=== PATIENT | male | born 1955 | race Asian ===

== ENCOUNTER 2018-10-05 06:18 | Inpatient (IN) | payer OTHER ==
[~2018-10-05] VITALS: Ht 162.6 cm; Wt 69.1 kg
[2018-10-05 10:52] LABS: CALCIUM 8.8 mg/dL (8.5-10.1); CARBON DIOXIDE 29.6 mmol/L (21-32); CHLORIDE SERUM 106 mmol/L (98-107); CREATININE SERUM 0.8 mg/dL (0.7-1.3); GFR1 > 60 mL/min; GLUCOSE SERUM 109 mg/dL (74-106); POTASSIUM SERUM 3.8 mmol/L (3.5-5.1); SODIUM SERUM 142 mmol/L (136-145)
[2018-10-05 10:58] LABS: ALBUMIN 3.6 g/dL (3.4-5.0); ALKALINE PHOSPHATASE 79 U/L (46-116); ALT/SGPT 24 U/L (16-63); AST/SGOT 18 U/L (15-37); BILIRUBIN TOTAL 0.4 mg/dL (0.20-1.00)
[2018-10-05 11:39] LABS: BASOPHIL % 0.4 % (0-2); PLATELET COUNT 194 x10^3mcL (130-400); RED CELL DISTRIBUTION WIDTH 12.8 % (11.5-14.5)
[2018-10-05 13:10] VITALS: BP 131/91
[2018-10-05 17:00] VITALS: BP 114/78
[2018-10-05 21:52] VITALS: BP 110/63
[2018-10-06 06:24] VITALS: BP 116/65
[2018-10-06 09:06] VITALS: BP 94/53
[2018-10-06 12:30] VITALS: BP 101/61
[2018-10-06 16:29] VITALS: BP 112/67
[2018-10-06 21:05] VITALS: BP 130/75
[2018-10-07 06:26] VITALS: BP 118/72
[2018-10-07 06:43] LABS: BASOPHIL % 0.2 % (0-2); PLATELET COUNT 166 x10^3mcL (130-400); RED CELL DISTRIBUTION WIDTH 12.9 % (11.5-14.5)
[2018-10-07 07:16] LABS: CALCIUM 7.9 mg/dL (8.5-10.1); CARBON DIOXIDE 28.2 mmol/L (21-32); CHLORIDE SERUM 102 mmol/L (98-107); CREATININE SERUM 0.8 mg/dL (0.7-1.3); GFR1 > 60 mL/min; GLUCOSE SERUM 106 mg/dL (74-106); POTASSIUM SERUM 3.4 mmol/L (3.5-5.1); SODIUM SERUM 138 mmol/L (136-145)
[2018-10-07 08:36] VITALS: BP 106/64
[2018-10-07 12:41] VITALS: BP 99/61
[2018-10-07 15:35] VITALS: BP 112/70
[2018-10-07 20:49] VITALS: BP 109/65
[2018-10-08 04:59] VITALS: BP 104/68
[2018-10-08 06:28] LABS: BASOPHIL % 0.5 % (0-2); PLATELET COUNT 172 x10^3mcL (130-400); RED CELL DISTRIBUTION WIDTH 12.9 % (11.5-14.5)
[2018-10-08 10:39] VITALS: BP 121/59
[2018-10-08 17:25] VITALS: BP 93/55
[2018-10-08 21:57] VITALS: BP 109/61
[2018-10-09 06:00] VITALS: BP 103/61
[2018-10-09 07:06] LABS: BASOPHIL % 0.3 % (0-2); PLATELET COUNT 161 x10^3mcL (130-400); RED CELL DISTRIBUTION WIDTH 12.9 % (11.5-14.5)
[2018-10-09 07:20] LABS: CALCIUM 8.1 mg/dL (8.5-10.1); CARBON DIOXIDE 28.9 mmol/L (21-32); CHLORIDE SERUM 100 mmol/L (98-107); CREATININE SERUM 0.8 mg/dL (0.7-1.3); GFR1 > 60 mL/min; GLUCOSE SERUM 134 mg/dL (74-106); POTASSIUM SERUM 3.5 mmol/L (3.5-5.1); SODIUM SERUM 135 mmol/L (136-145)
[2018-10-09 10:02] VITALS: BP 102/61
[2018-10-09 17:15] VITALS: BP 105/56
[2018-10-09 20:38] VITALS: BP 111/47
[2018-10-10 05:51] VITALS: BP 96/58
[2018-10-10 06:50] LABS: BASOPHIL % 0.3 % (0-2); PLATELET COUNT 171 x10^3mcL (130-400); RED CELL DISTRIBUTION WIDTH 12.7 % (11.5-14.5)
[2018-10-10 07:01] LABS: CALCIUM 8.7 mg/dL (8.5-10.1); CARBON DIOXIDE 28.8 mmol/L (21-32); CHLORIDE SERUM 100 mmol/L (98-107); CREATININE SERUM 0.8 mg/dL (0.7-1.3); GFR1 > 60 mL/min; GLUCOSE SERUM 122 mg/dL (74-106); POTASSIUM SERUM 3.9 mmol/L (3.5-5.1); SODIUM SERUM 137 mmol/L (136-145)
[2018-10-10 08:13] VITALS: BP 93/61
[2018-10-10 12:25] VITALS: BP 106/70
[2018-10-10 16:45] VITALS: BP 101/63
[2018-10-10 21:00] VITALS: BP 98/62
[2018-10-11 05:44] VITALS: BP 97/63
[2018-10-11 09:20] VITALS: BP 118/65
[2018-10-11 09:44] VITALS: BP 97/63
== END 2018-10-11 13:15 | DRG 470 ==
LOC: ED 06:18 → MU 08:34
PROVIDERS: Emergency Medicine; Internal Medicine; Internal Medicine Pulmonary Disease; Neuromusculoskeletal Medicine, Sports Medicine; ADMIT Internal Medicine Pulmonary Disease
PROC: 0SRS03A Replacement of Left Hip Joint, Femoral Surface with Ceramic Synthetic Substitute, Uncemented, Open Approach (ICD-10-PCS; principal; 2018-10-08 07:30)
DX: S72.012A Unspecified intracapsular fracture of left femur, initial encounter for closed fracture (principal); R33.8 Other retention of urine; F17.210 Nicotine dependence, cigarettes, uncomplicated; I10 Essential (primary) hypertension; K59.09 Other constipation; W06.XXXA Fall from bed, initial encounter; Y93.84 Activity, sleeping; Y92.013 Bedroom of single-family (private) house as the place of occurrence of the external cause; Y99.8 Other external cause status
CPT/HCPCS: 94150; 97110-GP; 97116-GP; 97530-GP; C1776; J0690; J1170; J1644; J1650; J1885; J2270; J2405; J3010; J7030; J7040; Q0092